=== PATIENT | female | born 1940 | race Caucasian/White ===

== ENCOUNTER 2023-05-04 13:18 | Outpatient (CLI) | payer MEDICARE, OTHER | END 2023-05-04 13:19 | disposition home or self-care (01) | LOC: ULT 13:18 | PROVIDERS: ATTEND Internal Medicine | DX: I34.0 Nonrheumatic mitral (valve) insufficiency (principal); I36.1 Nonrheumatic tricuspid (valve) insufficiency; I50.32 Chronic diastolic (congestive) heart failure | CPT/HCPCS: 93306 ==

== ENCOUNTER 2023-10-03 11:36 | Outpatient (CLI) | payer MEDICARE, OTHER | END 2023-10-03 11:37 | disposition home or self-care (01) | LOC: DTY/OP 11:36 | PROVIDERS: ATTEND Internal Medicine | DX: M10.9 Gout, unspecified (principal) | CPT/HCPCS: 97802 ==

== ENCOUNTER 2025-07-14 14:09 | Outpatient (CLI) | payer MEDICARE | END 2025-07-14 14:10 | disposition home or self-care (01) | LOC: BICMAMMO 14:09 | DX: Z78.0 Asymptomatic menopausal state (principal); M54.50 Low back pain, unspecified; G89.29 Other chronic pain; M81.0 Age-related osteoporosis without current pathological fracture | CPT/HCPCS: 77080 ==

== ENCOUNTER 2025-07-23 15:18 | Emergency (ER) | payer MEDICARE | END 2025-07-23 16:48 | disposition home or self-care (01) | LOC: ERS 15:18 | DX: M16.12 Unilateral primary osteoarthritis, left hip (principal) | CPT/HCPCS: 99283 ==